=== PATIENT | male | born 1955 | race Caucasian/White ===

== ENCOUNTER 2016-11-11 09:13 | Inpatient (IN) | payer OTHER ==
[2016-11-11] MEDS ORDERED: BUPIVACAINE/EPI 0.25% 30 ML SDV ONE (09:17)
[2016-11-11] MEDS ORDERED: BACITRACIN 50,000 UNITS/10 ML SYR IRR ONE (09:17)
[2016-11-11] MEDS ORDERED: THROMBIN (BOVINE) 20,000 UNIT VIAL TP ONE ×2 (09:18→14:43)
[2016-11-11] MEDS ORDERED: MIDAZOLAM 2 MG/2 ML VIAL IVP ONE (09:31)
[2016-11-11] MEDS: TRANEXAMIC ACID 1,000 MG in NS 100 ML IV ONE ×2 (09:31→11:53)
[2016-11-11] MEDS ORDERED: TRANEXAMIC ACID 900 MG in NS 100 ML IV ONE (09:35)
[2016-11-11] MEDS ORDERED: DEXMEDETOMIDINE HCL 400 MCG in NS 100 ML IV ONE (10:00)
[2016-11-11] MEDS ORDERED: GABAPENTIN 300 MG CAP PO ONE (10:36)
[2016-11-11] MEDS ORDERED: VANCOMYCIN PHARMACY TO DOSE MISC ONE (10:36)
[2016-11-11] MEDS ORDERED: morphINE SR 15 MG TAB PO ONE (10:36)
[2016-11-11] MEDS ORDERED: ACETAMINOPHEN 500 MG TAB PO ONE (10:36)
--- NOTE | 2016-11-11 10:36 | PDANEPAE ---
ANE History of Present Illness 61 year old male with legs, back, feet pain bilaterally. ANE Past Medical History Past Medical History: No URI/fever x2 weeks. 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 - Cardiovascular History Hx Arrhythmias: Yes Cardiovascular History Comment: Palpitations - anxiety-related? 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 - Renal History Renal History Comment: one kidney not working ANE Review of Systems Review of Systems: No URI/fever x2 weeks. - Systems Constitutional: Reports: no symptoms Cardiac: Reports: no symptoms, palpitations Respiratory: Reports: no symptoms ANE Patient History - Allergies Allergies/Adverse Reactions: cephalexin [From Keflex] Allergy (Unverified 11/10/16 13:29) Rash ciprofloxacin [From Cipro] Allergy (Unverified 11/10/16 13:29) Rash sulfamethoxazole [From Bactrim] Allergy (Unverified 11/10/16 13:29) Rash trimethoprim [From Bactrim] Allergy (Unverified 11/10/16 13:29) Rash - Home Medications Home medications: home medication list seen and reviewed Home Medications: Gabapentin [Neurontin 100 MG (*)] 200 mg PO HS 11/10/16 [Last Taken 11/11/16 01: 00] QUEtiapine FUMARATE [Seroquel 25 mg (*)] 50 mg PO HS 11/10/16 [Last Taken 23:00 50mg] clonazePAM [Klonopin (*)] 0.5 mg PO PRN PRN 11/10/16 [Last Taken 11/05/16] - NPO status NPO Since - Liquids (Date): 11/10/16 NPO Since - Liquids (Time): 22:00 NPO Since - Solids (Date): 11/10/16 NPO Since - Solids (Time): 21:00 - Anes Hx Anes Hx: no prior problems - Smoking Hx Smoking Status: Never smoked Marijuana use: No - Alcohol Use Alcohol Use: Occasionally (5 drinks/week) - Family Anes Hx Family Anes Hx: neg - N/A ANE Labs/Vital Signs - Labs - CBC WBC: reviewed, no anemia - Labs - BMP Sodium: reviewed, normal Cr - Vital Signs Blood Pressure: 140/93 Heart Rate: 55 Respiratory Rate: 16 O2 Sat (%): 96 Height: 185.42 cm Weight: 89.358 kg ANE Physical Exam - Airway Neck exam: FROM Mallampati Score: Class 2 Mouth exam: normal dental/mouth exam - Pulmonary Pulmonary: clear to auscultation - Cardiovascular Cardiovascular: regular rate and rhythym - ASA Status ASA Status: II ANE Anesthesia Plan Anesthesia Plan: general endotracheal anesthesia Lines/Monitors: additional IV
[2016-11-11] MEDS ORDERED: fentaNYL 100 MCG/2 ML INJ ONE (10:57)
[2016-11-11] MEDS ORDERED: REMIFENTANIL HCL 1 MG VIAL ONE ×2 (10:57)
[2016-11-11] MEDS ORDERED: PROPOFOL/EMULSION 500 MG/50 ML BOTTLE IV ONE ×3 (10:57→13:23)
[2016-11-11] MEDS ORDERED: ROCURONIUM 50 MG/5 ML VIAL ONE (11:00)
[2016-11-11] MEDS ORDERED: DEXAMETHASONE 4 MG/ML VIAL ONE (11:00)
[2016-11-11] MEDS ORDERED: VANCOMYCIN 1.5 GM in D5W 250 ML IV ONE ×2 (11:00→23:00)
[2016-11-11] MEDS ORDERED: epHEDrine SULFATE 10 MG/ML SYR ONE (11:53)
[2016-11-11] MEDS ORDERED: CITRATE DEXTROSE SOLN 500 ML BAG ONE (11:57)
[2016-11-11] MEDS ORDERED: DIAZEPAM 10 MG/2 ML SYR ONE (11:57)
[2016-11-11] MEDS: morphINE PF 5 MG/10 ML INJ IT ONE (15:17)
[2016-11-11] MEDS ORDERED: ONDANSETRON 4 MG/2 ML VIAL ONE (15:19)
[2016-11-11] MEDS ORDERED: NALOXONE HCL 0.4 MG/ML INJ IVP PRN (15:43)
[2016-11-11] MEDS ORDERED: fentaNYL 100 MCG/2 ML INJ IVP PRN (15:43)
[2016-11-11] MEDS ORDERED: ALBUTEROL 3 ML DEYVIAL IH PRN (15:43)
[2016-11-11] MEDS ORDERED: LR 500 ML IV PRN (15:43)
[2016-11-11] MEDS ORDERED: PROMETHAZINE HCL 25 MG/ML INJ IVP PRN ×2 (15:43→16:03)
[2016-11-11] MEDS ORDERED: BISACODYL 10 MG SUPP PR PRN (16:03)
[2016-11-11] MEDS ORDERED: MAGNESIUM HYDROXIDE 30 ML UDCUP PO PRN (16:03)
[2016-11-11] MEDS ORDERED: ONDANSETRON DISINTEGRATING 4 MG TAB PO PRN (16:03)
[2016-11-11] MEDS ORDERED: LACTULOSE 20 GM/30 ML UDCUP PO PRN (16:03)
[2016-11-11] MEDS ORDERED: ONDANSETRON 4 MG/2 ML VIAL IVP PRN (16:03)
[2016-11-11] MEDS ORDERED: POLYETHYLENE GLYCOL 3350 17 GM PKT PO PRN (16:03)
[2016-11-11] MEDS ORDERED: diphenhydrAMINE 25 MG CAP PO PRN (16:03)
[2016-11-11] MEDS ORDERED: HYDROmorphONE/DILAUDID 1 MG/ML SYR IVP PRN (16:08)
[2016-11-11] MEDS ORDERED: DIAZEPAM 5 MG TAB PO PRN (16:09)
[2016-11-11] MEDS ORDERED: DIAZEPAM 10 MG/2 ML SYR IVP PRN (16:09)
[2016-11-11] MEDS ORDERED: NS W/ 20 KCl/L 1,000 ML IV SCH (16:15)
--- NOTE | 2016-11-11 16:15 | POSTOPPROG ---
Post Op Note Date of Operation: 11/11/16 Surgeon: Anna Alcaraz Manager Vehicle: Gabi Alcaraz PA-C Anesthesiologist: Alexy Anesthesia: GET(General Endotracheal) Pre-op Diagnosis: lumbar stenosis, radiculopathy Post-op Diagnosis: same Indication: numbness, nerve compression Procedure: redo L34 decompression, L3-5laminectomy, L3-5 TLIF/PSF, synovial cyst resec Findings: Please see operative report Inf/Abcess present in the surg proc area at time of surgery?: No Depth: Organ Space EBL: 100-500 Complications: none Drains: Reji Boggs Specimen(s): synovial cyst LILLIAN Addendum - Addendum .: S: Pt sleeping in PACU O: Sleeping but awakens easily Follows all commands NAD VSS MAEx4 Motor 5/5 BUE/BLE +LT Incision dressed cdi [id number] Luong in A: 61 yo M s/p L34 redo decompression and synovial cyst resection, L3-5 laminectomy, L3-5 TLIF/posterior fusion P: PT/OT Brace when OOB TEDs, SCDs, lovenox POD#1 Pain management Post op xrays pending DC luong in AM Follow DWAYNE output Call NS with any issues D/w Dr Ross
[2016-11-11] MEDS: FLUMAZENIL 0.5 MG/5 ML MDV IVP SCH ×2 (17:02→17:51)
--- NOTE | 2016-11-11 17:51 | POSTANESTH ---
Post Anesthetic Evaluation Cardiovascular Status: Other, See Comment Respiratory Status: Requires Airway Assist Level of Consciousness/Mental Status: Unconscious Pain Control: Adequate, Prn Tx Ordered Nausea/Vomiting Control: Adequate, Prn Tx Ordered (Pt very somnolent but with good respiratory pattern, though requiring jaw thrust to maintain airway. Pt appears over sedated from the diazepam. Flumazenil 100 mcg given with good response. Pt maintaining own airway, moving extremities to command and answering questions, though still going back to sleep when left undisturbed.)
[2016-11-11] MEDS ORDERED: FLUMAZENIL 0.5 MG/5 ML MDV IVP PRN (18:08)
[2016-11-11 20:29] LABS: ANION GAP 9 mEq/L (8-16); CALCIUM 9.2 mg/dL (8.5-10.4); CARBON DIOXIDE 25 mEq/l (22-31); CHLORIDE 106 mEq/L (97-110); CREATININE 0.8 mg/dL (0.7-1.3); GLOMERULAR FILTRATION RATE > 60; GLUCOSE 153 mg/dL (70-100); POTASSIUM 4.3 mEq/L (3.5-5.2); SODIUM 140 mEq/L (134-144)
[2016-11-11] MEDS: QUEtiapine FUMARATE 25 MG TAB PO SCH (21:29)
[2016-11-11] MEDS: GABAPENTIN 100 MG CAP PO SCH ×2 (21:30→23:14)
[2016-11-11] MEDS: FAMOTIDINE 20 MG TAB PO SCH (21:30)
[2016-11-11] MEDS: ACETAMINOPHEN 500 MG TAB PO SCH (21:31)
[2016-11-11] MEDS: SENNOSIDES/DOCUSATE SODIUM TAB PO SCH (21:35)
[2016-11-11] MEDS: POLYETHYLENE GLYCOL 3350 17 GM PKT PO SCH (21:40)
--- NOTE | 2016-11-12 05:29 | GOP ---
[f rep st] OPERATIVE REPORT DATE OF OPERATION: 11/11/2016 SURGEON: Pollo Ross MD TUBE STATION ATTENDANT: Anna Alcaraz PA-C. ANESTHESIA: General. PREOPERATIVE DIAGNOSIS: 1. Spinal stenosis, L3-L4, status post prior hemilaminotomy and decompression. 2. L4-5 ohuhlvdp-xy-uueqhd stenosis. 3. Low back pain and radiculopathy. 4. Progressive weakness. 5. Perigenital numbness. POSTOPERATIVE DIAGNOSIS: 1. Spinal stenosis, L3-L4, status post prior hemilaminotomy and decompression. 2. L4-5 rbfvxdcx-lc-[id number] stenosis. 3. Low back pain and radiculopathy. 4. Progressive weakness. 5. Perigenital numbness. PROCEDURE PERFORMED: 1. intervention surgery is a posterior arthrodesis with approach to L3, L4, L5. 2. Posterolateral fusion with bilateral pedicle screw placements into L3, L4, and L5, from the M2G Solera 4.75 system. 3. Use of intraoperative 3D Stealth navigation. 4. Redo decompressive laminectomy, L3-L4, with left-sided synovial cyst resection and spinal cord d ecompression. 5. L4-5 laminectomy and bilateral medial facetectomy. 6. Left-sided L3-L4 transforaminal lumbar interbody fusion with a 9 x 28 mm titanium PEEK elevated cage with a morselized autograft and allograft. 7. Left-sided L4-L5 transforaminal lumbar interbody fusion with a 9 x 28 mm titanium PEEK elevated cage with a morselized autograft and allograft. 8. Posterolateral fusion on the right between L3 and L5 with morselized autograft and allograft. 9. Use of intraoperative fluoroscopy, less than 1 hour physician time. 10. Use of neuromonitoring. 11. Use of operative microscope. 12. Injection of preservative-free intrathecal narcotics. FINDINGS: SPECIMENS: A synovial cyst was sent to Pathology for permanent analysis. ESTIMATED BLOOD LOSS: 250 mL. INDICATIONS: The patient is a 61-year-old gentleman, who has undergone prior hemilaminotomy and dec ompression by myself several months ago. The patient did well for some time, but then presented wit h worsening symptoms including some weakness. He had evidence of progressive and recurrent stenosis at L3-4 with development of a new synovial cyst causing his symptoms. The patient failed nonoperat josue intervention and given his progression of symptoms including weakness, we decided to proceed for th with surgery as described above. DESCRIPTION OF PROCEDURE: Patient was brought to the operating theater and underwent general endotr acheal anesthesia without complications. Venodynes, MP hose, and the appropriate lines were placed by Anesthesia. He was then flipped prone onto the Reji table and all bony processes were inspec mp and padded. The lower lumbar region including the prior incision was identified, and prepped an d draped in the usual sterile surgical fashion. A time-out was completed per protocol, and the chrissy ent received antibiotics within 1 hour of incision. The incision was infiltrated with Marcaine with epinephrine and taken down with the scalpel blade. Care was taken to avoid the previous hemilaminotomy defect at the L3-4 level. We created a subperio steal dissection up to the transverse processes bilaterally at L3, L4, and L5. Deep retractors were placed to maintain our exposure. We attached the 3D Stealth navigation clamp to the spinous proces s of L5 and completed a 3D Stealth navigation spin. Using 3D Stealth navigation, we placed the johnathan t holes for the bilateral pedicle screws at L3, L4, and L5. All holes were manually palpated with n o evidence of any cortical breaches. We then tapped and placed 6.5 x 55 mm screws bilaterally at L3 , L4, and 6.5 x 50 mm screws bilaterally at L5. Another 3D Stealth navigation spin demonstrated goo d placement of the hardware. At this point, the microscope was brought into the field to assist wit h microscopic dissection and to maintain illumination and magnification. We moved out and completed a redo laminectomy and decompression at L3-L4 and -L4-L5. The tissues were extremely adherent and scarred down at the L3-4 level. On the left side, we moved the thecal sac medially, and we were abl e to tease out very adherent synovial cyst. which was removed and sent to Pathology for permanent an alysis. Once we completed our lateral recess decompressions, we resected the pars on the left side between L3-L4 and L4-L5. We moved up to L3-4, where we distracted the interspace and completed a le ft-sided L3-4 diskectomy. We prepared the concept plates and measured the interbody space. Then, hitesh bonner placed a 9 x 28 mm titanium PEEK elevated cage with morselized autograft and allograft anteriorly towards the midline. We let down distraction and moved down to L4-5, where we distracted the inters pace and completed a left-sided L4-5 diskectomy. We prepared the concept plates and measured the in terbody space. We then placed a 9 x 28 mm titanium PEEK elevated cage with morselized autograft and allograft anteriorly toward the midline. We packed additional morcellized autograft in the disk sp conner for interbody fusion. We then let down distraction and decorticated the bone on the right side between L3 and L5. We placed 2 lordotic rods into the heads of the screws between L3 and L5, and se cured them down with cap screws, which were then tightened to the coat maker's setting. We irriga mp copiously with bacitracin irrigation and placed morselized autograft and allograft on the right side between L3-5 for posterolateral fusion. We injected preservative-free intrathecal narcotics an d left the drain in the subfascial space. The wound was then closed in multiple layers using Vicryl sutures in the deep layers and Dermabond for the skin. The patient's wounds were dressed sterilely . He was then flipped supine onto the transfer cart, where he was awakened, extubated, and taken to the recovery room in stable condition. There were no complications and no noted changes on neuromonitoring throughout the procedure. COMPLICATIONS: None. /[id number]/MODL
[2016-11-12] MEDS: oxyCODONE IR 5 MG TAB PO PRN ×3 (05:31→23:47)
[2016-11-12] MEDS: ACETAMINOPHEN 500 MG TAB PO SCH ×3 (05:31→21:29)
--- NOTE | 2016-11-12 08:37 | NEUSURGPN ---
Date of Surgery: 11/11/16 Post Op Day: 1 Assessment/Plan: 61 yo male s/p TLIF L3-L5 - neuro stable - pain control - PT/OT - wear brace when out of bed - continue DWAYNE drain, likely remove tomorrow - postop x-rays pending - DVT prophylaxis: SCDs/TEDs/Lovenox - please contact neurosurgery with any changes in neuro status/exam Subjective: Doing well. Pain localized to the back. Genital numbness unchanged Objective: Awake. Alert. PERRL. EOMI Facial expression symmetrical Muscle strength full at 5/5 Sensation intact to LE Catheter Insertion Date: 11/11/16 - Physician Discussed Patient with : Vandana Neurosurgery Physical Exam - Vitals, I&O, Labs I and O 11/11/16 11/12/16 11/13/16 05:59 05:59 05:59 Intake Total 2510 500 Output Total 1470 1400 Balance 1040 -900 Weight 88.451 kg Intake: Oral (ml) 10 500 IV Intake (ml) 1500 IV Infused (ml) 1000 NS W/ 20 KCl/L 1,000 ml @ 750 75 mls/hr IV CONT DIONNE Rx #:[id number] Vancomycin 1.5 gm In D5w 250 250 ml @ 166.667 mls/hr IV ONCE ONE Rx#: [id number] Output: Urine (ml) 1125 1400 Catheter 1125 1400 Estimated Blood Loss (ml) 250 DWAYNE Drain Output (ml) 95 Posterior Back Reji 95 Boggs Other: Intake Quantity Yes Sufficient Number of Voids Catheter 1 Vital Signs Temp Pulse Resp BP Pulse Ox 36.8 C 60 14 121/71 H 99 11/12/16 08:00 11/12/16 08:00 11/12/16 08:00 11/12/16 08:00 11/12/16 08:00 Laboratory Results 11/11/16 20:08 ICD10 Worksheet Patient Problems: Problems Problem Status Onset Lumbar spondylosis Acute - ICD10 Problem Qualifiers (1) Lumbar spondylosis
[2016-11-12] MEDS: FAMOTIDINE 20 MG TAB PO SCH ×2 (08:55→21:31)
[2016-11-12] MEDS: SENNOSIDES/DOCUSATE SODIUM TAB PO SCH ×2 (08:55→21:30)
[2016-11-12] MEDS: POLYETHYLENE GLYCOL 3350 17 GM PKT PO SCH ×3 (08:55→21:32)
[2016-11-12] MEDS ORDERED: ENOXAPARIN 40 MG/0.4 ML SYR SC SCH (09:00)
[2016-11-12] MEDS: METHOCARBAMOL 750 MG TAB PO PRN ×2 (16:49→23:49)
[2016-11-12] MEDS: ENOXAPARIN 40 MG/0.4 ML SYR SC SCH (17:33)
[2016-11-12] MEDS: GABAPENTIN 100 MG CAP PO SCH (21:27)
[2016-11-12] MEDS: QUEtiapine FUMARATE 25 MG TAB PO SCH (21:31)
[2016-11-13] MEDS: METHOCARBAMOL 750 MG TAB PO PRN ×3 (00:13→17:24)
[2016-11-13] MEDS: clonazePAM 0.5 MG TAB PO PRN (00:26)
[2016-11-13] MEDS: ACETAMINOPHEN 500 MG TAB PO SCH ×3 (06:12→20:57)
[2016-11-13] MEDS: SENNOSIDES/DOCUSATE SODIUM TAB PO SCH ×2 (08:40→21:01)
[2016-11-13] MEDS: FAMOTIDINE 20 MG TAB PO SCH ×2 (08:40→20:58)
[2016-11-13] MEDS: ENOXAPARIN 40 MG/0.4 ML SYR SC SCH (08:41)
[2016-11-13] MEDS: POLYETHYLENE GLYCOL 3350 17 GM PKT PO SCH ×3 (09:09→21:02)
[2016-11-13] MEDS ORDERED: diphenhydrAMINE 25 MG CAP PO PRN (09:14)
[2016-11-13] MEDS: oxyCODONE IR 5 MG TAB PO PRN (10:28)
--- NOTE | 2016-11-13 12:03 | NEUSURGPN ---
Assessment/Plan: 61 yo male s/p TLIF L3-L5 - neuro stable- needs a lot of encouragement, has a lot of anxiety, asking for psych consult, but has been seeing spiritual care for anxiety while he has been here for now. - pain control - PT/OT - wear brace when out of bed - Remove DWAYNE drain today - postop x-rays still pending- get today - DVT prophylaxis: SCDs/TEDs/Lovenox - please contact neurosurgery with any changes in neuro status/exam Subjective: Doign well, fairly anxious still and does not think he can go home today. Denies any leg pain, but has expected back pain that is being well manged. Objective: Awake. Alert. PERRL. EOMI Facial expression symmetrical Muscle strength full at 5/5 Sensation intact to LE DWAYNE X 1- with serosang in bulb- to be removed Catheter Insertion Date: 11/11/16 - Physician Discussed Patient with : Vandana Neurosurgery Physical Exam - Vitals, I&O, Labs I and O 11/12/16 11/13/16 11/14/16 05:59 05:59 05:59 Intake Total 2510 1000 350 Output Total 1470 1915 820 Balance 1040 -915 -470 Weight 88.451 kg Intake: Oral (ml) 10 1000 350 IV Intake (ml) 1500 IV Infused (ml) 1000 NS W/ 20 KCl/L 1,000 ml @ 750 75 mls/hr IV CONT DIONNE Rx #:[id number] Vancomycin 1.5 gm In D5w 250 250 ml @ 166.667 mls/hr IV ONCE ONE Rx#: [id number] Output: Urine (ml) 1125 1850 700 Catheter 1125 1850 Urinal 700 Estimated Blood Loss (ml) 250 DWAYNE Drain Output (ml) 95 65 120 Posterior Back Reji 95 65 120 Boggs Other: Intake Quantity Yes Sufficient Number of Voids Catheter 3 Vital Signs Temp Pulse Resp BP Pulse Ox 36.7 C 69 14 107/61 98 11/13/16 08:10 11/13/16 08:10 11/13/16 08:10 11/13/16 08:10 11/13/16 08:10 Laboratory Results 11/11/16 20:08 ICD10 Worksheet Patient Problems: Problems Problem Status Onset Lumbar spondylosis Acute
[2016-11-13] MEDS: QUEtiapine FUMARATE 25 MG TAB PO SCH (20:58)
[2016-11-13] MEDS: GABAPENTIN 100 MG CAP PO SCH (20:59)
[2016-11-14] MEDS: clonazePAM 0.5 MG TAB PO PRN (01:18)
[2016-11-14] MEDS: ACETAMINOPHEN 500 MG TAB PO SCH ×4 (06:24→17:05)
[2016-11-14] MEDS: SENNOSIDES/DOCUSATE SODIUM TAB PO SCH (09:19)
[2016-11-14] MEDS: FAMOTIDINE 20 MG TAB PO SCH (09:19)
[2016-11-14] MEDS: ENOXAPARIN 40 MG/0.4 ML SYR SC SCH (09:19)
[2016-11-14] MEDS: POLYETHYLENE GLYCOL 3350 17 GM PKT PO SCH ×2 (09:20→15:45)
--- NOTE | 2016-11-14 09:43 | NEUSURGPN ---
Date of Surgery: 11/11/16 Post Op Day: 3 Assessment/Plan: 61 yo male s/p TLIF L3-L5 - neuro stable - pain control - PT/OT - wear brace when out of bed - postop x-rays- Hardware in good position - DVT prophylaxis: SCDs/TEDs/Lovenox - Dispo: Plan for home later today if does well with PT/OT - please contact neurosurgery with any changes in neuro status/exam Subjective: Back pain controlled. No LE numbness, pain, tingling. Continues to have UE twitches, unchanged compared to prior to surgery. Objective: Awake. Alert. PERRL. EOMI Muscle strength full at 5/5 Sensation intact Catheter Insertion Date: 11/11/16 - Physician Discussed Patient with : Vandana Neurosurgery Physical Exam - Vitals, I&O, Labs I and O 11/13/16 11/14/16 11/15/16 05:59 05:59 05:59 Intake Total 1000 550 Output Total 1915 2245 Balance -915 -1695 Intake: Oral (ml) 1000 550 Output: Urine (ml) 1850 2100 Catheter 1850 Urinal 2100 DWAYNE Drain Output (ml) 65 145 Posterior Back Reji 65 145 Boggs Other: Intake Quantity Yes Yes Sufficient Number of Voids Catheter 3 Vital Signs Temp Pulse Resp BP Pulse Ox 36.9 C 71 14 115/77 99 11/14/16 07:39 11/14/16 07:39 11/14/16 07:39 11/14/16 07:39 11/14/16 07:39 Laboratory Results 11/11/16 20:08 ICD10 Worksheet Patient Problems: Problems Problem Status Onset Lumbar spondylosis Acute - ICD10 Problem Qualifiers (1) Lumbar spondylosis
--- NOTE | 2016-11-14 14:02 | PDIAF ---
- Diagnosis Diagnosis: Lumbar spondyosis s/p TLIF L3-L5 Code Status: Full Code - Medication Management Discharge Medications: Medications to Continue on Transfer Gabapentin [Neurontin 100 MG (*)] 200 mg PO HS 11/10/16 [Last Taken 11/11/16 01: 00] QUEtiapine FUMARATE [Seroquel 25 mg (*)] 50 mg PO HS 11/10/16 [Last Taken 23:00 50mg] clonazePAM [Klonopin (*)] 0.5 mg PO PRN PRN 11/10/16 [Last Taken 11/05/16] Methocarbamol [Robaxin 750 mg (*)] 750 mg PO QID PRN #60 tab 11/14/16 [Last Taken Unknown] oxyCODONE IR [Oxycodone Ir (*)] 5 - 10 mg PO Q4HRS PRN #60 tab 11/14/16 [Last Taken Unknown] Discharge Medications: Refer to the Discharge Home Medication list for PRN reason. PICC Care - Routine: N/A - Orders Services needed: Physical Therapy, Occupational Therapy Diet Recommendation: no restrictions on diet Diet Texture: Regular Texture Diet Wound Care Instructions: Ok to shower and get incision wet. Be gentle. No scrubbing. No soaking in the water (swimming, hot tubs) Activity/Weight Bearing Restrictions: Wear brace when out of bed. Refrain from lifting more than 10 pounds and bending/twisting - Follow Up Care Current Providers and Referrals: David Ferguson MD [Primary Care Provider] - Pollo Ross MD [Medical Doctor] - follow up in 2 weeks
[2016-11-14 17:20] VITALS: BP 128/87; PULSE 89; RESP 18; TEMP 98.3; O2SAT 93
== END 2016-11-14 17:24 | disposition home health service (06) | DRG 460 ==
LOC: F3N 09:13
PROVIDERS: ADMIT Neurological Surgery; ATTEND Neurological Surgery
PROC: 0SN00ZZ Release Lumbar Vertebral Joint, Open Approach (ICD-10-PCS; principal; 2016-11-11 11:00)
PROC: 8E0WXBZ Computer Assisted Procedure of Trunk Region (ICD-10-PCS; principal; 2016-11-11 11:00)
PROC: 4A10X4G Monitoring of Central Nervous Electrical Activity, Intraoperative, External Approach (ICD-10-PCS; principal; 2016-11-11 11:00)
PROC: 0S9 Lower Joints, Drainage (ICD-10-PCS; principal; 2016-11-11 11:00)
PROC: 0SB20ZZ Excision of Lumbar Vertebral Disc, Open Approach (ICD-10-PCS; principal; 2016-11-11 11:00)
PROC: 0SG10A0 Fusion of 2 or more Lumbar Vertebral Joints with Interbody Fusion Device, Anterior Approach, Anterior Column, Open Approach (ICD-10-PCS; principal; 2016-11-11 11:00)
DX: M48.06 Spinal stenosis, lumbar region (principal); M71.38 Other bursal cyst, other site; M51.26 Other intervertebral disc displacement, lumbar region; F41.8 Other specified anxiety disorders
CPT/HCPCS: 97116-GP; 97161-GP; 97166-GO; 97530-GP; 97535-GO; C1713; J1100; J1650; J2250; J2274; J2405; J2704; J3010; J3370; J7060